=== PATIENT | male | born 1985 | race Caucasian/White ===

== ENCOUNTER 2019-01-15 16:03 | Emergency (ER) | payer MEDICAID, OTHER ==
[2019-01-15] MEDS ORDERED: Lidocaine 1% 20 ML MDV INJECT ONE (17:52)
[2019-01-15] MEDS ORDERED: Bacitracin Oint 1 GM U/D Packet TOP ONE (17:53)
--- NOTE | 2019-01-15 17:55 | EDM.PDOC ---
ED HPI GENERAL MEDICAL PROBLEM - General Chief Complaint: Laceration Stated Complaint: CLUT HAND Time Seen by Provider: 01/15/19 17:54 Source of Information: Reports: Patient History Limitations: Reports: No Limitations - History of Present Illness INITIAL COMMENTS - FREE TEXT/NARRATIVE: pt arrived with a 1 inch laceration in the palm of the rt hand. He has normal motion and normal sensation. Onset: Today, Other (has ) Duration: Hour(s): Location: Reports: Upper Extremity, Right Associated Symptoms: Reports: No Other Symptoms - Related Data Allergies Allergy/AdvReac Type Severity Reaction Status Date / Time No Known Allergies Allergy Verified 01/01/14 07:47 Home Meds: Home Meds NK [No Known Home Meds] 01/15/19 [History] Past Medical History - Past Health History Medical/Surgical History: Denies Medical/Surgical History Social & Family History - Tobacco Use Smoking Status *Q: Never Smoker ED ROS GENERAL - Review of Systems Review Of Systems: See Below Constitutional: Reports: No Symptoms HEENT: Reports: No Symptoms Respiratory: Reports: No Symptoms Cardiovascular: Reports: No Symptoms Endocrine: Reports: No Symptoms GI/Abdominal: Reports: No Symptoms : Reports: No Symptoms Musculoskeletal: Reports: No Symptoms Skin: Reports: Other ( 1 inch laceration in the palm of the rt hand. ) ED EXAM, SKIN/RASH Exam: See Below Text/Narrative:: pt arrived with a 1 inch laceration in the palm of the rt hand. Exam Limited By: No Limitations General Appearance: Alert Extremities: Other (pt cut his hand on a band saw. ) Neurological: Alert, Oriented, Normal Cognition Course - Vital Signs Last Recorded V/S: Last Vital Signs Temp 36.7 C 01/15/19 17:16 Pulse Resp 14 01/15/19 17:16 BP Pulse Ox 98 01/15/19 17:16 - Orders/Labs/Meds Orders: Active Orders 24 hr Category Date Time Status Vaccines to be Administered [RC] PER UNIT ROUTINE Care 01/15/19 18:00 Active Meds: Medications Discontinued Medications Generic Name Dose Route Start Last Admin Trade Name Freq PRN Reason Stop Dose Admin Bacitracin 1 dose 01/15/19 17:53 Bacitracin Oint 1 Gm TOP 01/15/19 17:54 ONETIME ONE Diphtheria/Tetanus/Acell Pertussis 0.5 ml 01/15/19 18:00 Adacel IM 01/15/19 18:01 .ONCE ONE Diphtheria/Tetanus/Acell Pertussis Confirm 01/15/19 18:03 Adacel Administered 01/15/19 18:04 Dose 0.5 ml .ROUTE .STK-MED ONE Lidocaine HCl 20 ml 01/15/19 17:52 Xylocaine 1% INJECT 01/15/19 17:53 ONETIME ONE - Re-Assessments/Exams Free Text/Narrative Re-Assessment/Exam: 01/15/19 18:23 pt was not current with his tetanus so a tdap was given, the hand was soaked. The wound was infiltrated with lidocaine and it was scrubbed well. The wound was closed with 5-0 chromic and 5-0 prolene in a layered fashion. Departure - Departure Time of Disposition: 18:25 Disposition: Home, Self-Care 01 Condition: Fair Clinical Impression: Laceration - Discharge Information Referrals: PCP,None [Primary Care Provider] - Forms: ED Department Discharge Care Plan Goals: keep dry, no further ointments, keep covered. sr in 7-8 days, - My Orders Last 24 Hours: My Active Orders 01/15/19 18:00 Vaccines to be Administered [RC] PER UNIT ROUTINE - Assessment/Plan Last 24 Hours: My Active Orders 01/15/19 18:00 Vaccines to be Administered [RC] PER UNIT ROUTINE
[2019-01-15] MEDS ORDERED: Diphtheria,Pertussis(Acell),Tetanus Vaccine 0.5 ML SDV IM ONE (18:00)
[2019-01-15] MEDS ORDERED: Diphtheria,Pertussis(Acell),Tetanus Vaccine 0.5 ML SDV ONE (18:03)
== END 2019-01-15 18:46 | disposition home or self-care (01) ==
LOC: JP.ED 16:03
DX: S61.411A Laceration without foreign body of right hand, initial encounter (principal); Z23 Encounter for immunization; W31.2XXA Contact with powered woodworking and forming machines, initial encounter
CPT/HCPCS: 12041; 90471; 90715; 99282; J2001